=== PATIENT | male | born 1970 | race Caucasian/White ===

== ENCOUNTER 2021-09-08 07:38 | Day surgery (SDC) | payer BC ==
[~2021-09-08 07:38] MED LIST: METOPROLOL100 MG PO; UNABLE; [UNRECOGNIZED DRUG - REMARK]
[2021-09-08] MEDS ORDERED: DIOVAN320 MG PO (07:53)
[2021-09-08] MEDS ORDERED: TOPROL XL100 MG PO (07:53)
[2021-09-08] MEDS ORDERED: ZOCOR 40MG40 MG PO (07:54)
[2021-09-08] MEDS ORDERED: NORVASC 10MG10 MG PO (07:54)
[2021-09-08 08:16] VITALS: BP 131/98; PULSE 74; TEMP 96.5
[2021-09-08 09:10] VITALS: BP 111/81; PULSE 77; TEMP 96.8
--- NOTE | 2021-09-08 09:10 | NUR ---
Patient arrived back into [facility]. Report recieved from BIBI Perez. Patient doing well. Reporting no pain. Requesting toast and sprite. Patient tolerated toast and sprite well with no complaint of nausea or vomiting. at bedside.
[2021-09-08 09:25] VITALS: BP 117/87; PULSE 72
--- NOTE | 2021-09-08 09:25 | NUR ---
Patient continuing to do well. Tolerated food and drink. Denies pain. Vital signs WNL. at bedside.
[2021-09-08 09:40] VITALS: BP 118/86; PULSE 84
--- NOTE | 2021-09-08 09:50 | NUR ---
Patient continues to do well. IV removed. Patient got dressed independently.
--- NOTE | 2021-09-08 09:56 | NUR ---
Dr. Pollack in to see patient, questions answered.
--- NOTE | 2021-09-08 10:00 | NUR ---
Went through discharge information with patient and patient's , Ros. Estuardo answered. Verbalized understanding to education. Patient and was then escorted to patient entrance and patient was left in the care of his .
== END 2021-09-08 10:00 | disposition home or self-care (01) ==
LOC: SDCO 07:38
DX: Z12.11 Encounter for screening for malignant neoplasm of colon (principal); D12.0 Benign neoplasm of cecum; I10 Essential (primary) hypertension; E78.5 Hyperlipidemia, unspecified; E66.9 Obesity, unspecified; F43.10 Post-traumatic stress disorder, unspecified; R73.01 Impaired fasting glucose; F17.220 Nicotine dependence, chewing tobacco, uncomplicated; Z79.899 Other long term (current) drug therapy
CPT/HCPCS: J2704; J7030